=== PATIENT | male | born 1980 | race Caucasian/White ===

== ENCOUNTER 2024-06-01 18:09 | Emergency (ER) | payer MEDICAID, SELFPAY ==
[2024-06-01 18:10] VITALS: BMI 27.1
[2024-06-01 18:50] VITALS: BP 128/79; PULSE 89; RESP 20; TEMP 36.9; O2SAT 96
--- NOTE | 2024-06-01 19:05 | PD.EDRME ---
Rapid Medical Screening Exam RME Arrival date/time: 06/01/24 18:09 43 year old male present to ED for c/o of left leg infection, unknown time I have greeted and performed a focused initial assessment of this patient. A comprehensive ED assessment and evaluation of the patient, analysis of all test results, and completion of the medical decision making process will be conducted by additional ED providers. Chief Complaint: Altered Mental Status Time Seen by Provider: 06/01/24 18:16 Vital signs: Vital Signs Temperature 98.5 F 06/01/24 18:50 Pulse Rate 89 06/01/24 18:50 Respiratory Rate 20 06/01/24 18:50 Blood Pressure 128/79 06/01/24 18:50 Pulse Oximetry (%) 96 06/01/24 18:50 Oxygen Delivery Method Room Air 06/01/24 18:50
--- NOTE | 2024-06-01 19:06 | XR_ITS ---
Examination: Tibia-Fibula, left , 2 views Technique: Tibia-fibula AP lateral 2 views Date and time of exam: June 01, 2024 1912 hrs. Indications: Dog bite to the lower leg 3 days ago with pain and swelling Findings: Soft tissue defect lateral lower leg No fracture No opaque foreign body Impression: No opaque foreign body
[2024-06-01 20:17] LABS: Basophils % (Auto) 0 % (0-2.5); Eosinophils # (Auto) 0.1 Thou/mm3 (0.0-0.5); Eosinophils % (Auto) 1 % (0-10); Hematocrit 43.6 % (41.0-53.0); Immature Granulocytes % (Auto) 0 % (0-0); Immature Granulocytes Auto 0.02 Thou/mm3 (0.00-0.00); Lymphocytes # (Auto) 1.4 Thou/mm3 (1.0-4.8); Lymphocytes % (Auto) 16 % (10-50); Mean Corpuscular HGB Conc 34.4 g/dl (31.0-37.0); Mean Corpuscular Hemoglobin 29.9 pg (25.0-35.0); Mean Corpuscular Volume 87 fL (80-100); Monocytes # (Auto) 0.8 Thou/mm3 (0.0-0.8); Monocytes % (Auto) 10 % (0-12); Neutrophils # (Auto) 6.2 Thou/mm3 (1.8-7.7); Neutrophils % (Auto) 73 % (37-80); Nucleated Red Blood Cell % 0 /100 WBC (0); Platelet Count 348 Thou/mm3 (140-440); RDW Standard Deviation 37.6 fL (35.1-43.9); Red Blood Count 5.01 Miln/mm3 (4.50-5.90); White Blood Count 8.5 Thou/mm3 (3.8-10.6)
[2024-06-01 20:23] LABS: Prothrombin Time 10.6 Seconds (9.0-12.2)
[2024-06-01 20:33] LABS: Alanine Aminotransferase 37 U/L (10-49); Albumin, Serum 4.5 gm/dL (3.5-5.0); Alcohol, Blood Medical < 3.0 mg/dL (0-10.0); Alkaline Phosphatase 91 U/L (46-116); Anion Gap 4 (7-16); Aspartate Amino Transferase 24 U/L (0-34); BUN/Creatinine Ratio 12 Ratio (12-20); Bilirubin,Total 0.5 mg/dL (0.3-1.2); Blood Urea Nitrogen 14 mg/dL (9-23); Carbon Dioxide 31.7 mMol/L (20.0-31.0); Chloride 104 mMol/L (98-107); Creatinine (Component) 1.2 mg/dL (0.6-1.3); Estimated Creatinine Clearance 87.1 mL/min (>60); Globulin 2.3 gm/dL (2.3-3.5); Glucose 130 mg/dL (74-106); Osmolality,Calculated 281 (275-295); Potassium 4.8 mMol/L (3.4-5.1); Sodium 140 mMol/L (136-145); Total Protein 6.8 gm/dL (5.7-8.2); eGFR > 60 See Note
--- NOTE | 2024-06-01 20:47 | PC.NURSE ---
2045 PT CALLED BACK NO ANSWER AT THIS TIME.
--- NOTE | 2024-06-01 21:19 | PD.EDADULT ---
ED General RME/HPI General Chief complaint: Altered Mental Status Stated complaint: DOG BITE ON LEG, TODAY CONFUSED Time Seen by Provider: 06/01/24 18:16 Arrival date/time: 06/01/24 18:09 CC: Puncture wound with reported dog bite HPI patient presents to the ER, drowsy, easily arousable with slurred speech suspicious for substance abuse, stating that he was bitten by a dog a couple of days ago , however the patient states that he was seen at [facility] was put on medications which she does not have with him at the time. Patient states that he has been taking them with regularity. Patient is complaining of dog bite site on the left lower lateral leg that is mildly painful. RME / HPI RME / HPI narrative: 06/01/24 18:09 43 year old male present to ED for c/o of left leg infection, unknown time I have greeted and performed a focused initial assessment of this patient. A comprehensive ED assessment and evaluation of the patient, analysis of all test results, and completion of the medical decision making process will be conducted by additional ED providers. Related Data Previous Rx's ?Medication ?Instructions ?Recorded Hydrocodone/Acetaminophen * (NORCO 1 - 2 tab PO Q4H PRN PAIN #10 tabs 11/15/16 5/325 *) amoxicillin 875 mg-potassium 1 tab PO BID #14 tabs 06/01/24 clavulanate 125 mg tablet Allergies Allergy/AdvReac Type Severity Reaction Status Date / Time NKA* Allergy Uncoded 06/01/24 18:14 Review of Systems Review of Systems Narrative Review of Systems: GEN: No fever, no chills, no weight loss EYES: No discharge, no visual changes, no pain HEENT: No ear pain, no congestion, no sore throat PULM: No shortness of breath, no cough, no congestion CV: No chest pain, no dyspnea on exertion, no palpitations GI: No nausea, no vomiting, no diarrhea, no pain, no constipation : No frequency, no urgency, no dysuria MUSC/SKEL: No joint pain, no back pain SKIN: Positive puncture wound no rash PSYCH: No hallucinations, no depression HEME/LYMPH: No easy bleeding or bruising tendencies NEURO: No weakness, no headache Past Medical History Social History SMOKING STATUS: Current every day smoker ED Exam Narrative Physical exam: [General: Drowsy but easily arousable ill kempt, but not in any acute distress Head normocephalic HEENT: Within acceptable limits Neck is supple nontender Chest equal chest rise nontender to palpation Respiratory: Clear to auscultation no wheezes crackles or rubs CV: Rate rhythm is regular no murmurs rubs or clicks Abdomen is distended secondary to body habitus soft nontender no masses positive bowel sounds all 4 quadrants Back: No CVA tenderness no spinous process tenderness from cervical spine thoracic and lumbar spine Skin: Open wound site to the left lateral leg midshaft between the ankle and the knee. Surrounding erythema approximately 10 cm in diameter. No streaking streaking. No exudate. Considerable amount of eschar. Otherwise skin is intact no petechiae rash induration ulceration or crepitus Extremities: Moving all extremity against resistance cap refill less than 2 seconds neurosensory intact Neuro: Awake alert oriented x3 Glascow coma 15 no focal deficits] Course Quality Measures none Orders Category Date Time Status Dressing Care/Change NEEDED Care 06/01/24 21:18 Active XR tibia fibula LT 2V Stat Exams 06/01/24 19:06 Completed Alcohol, Blood Medical Stat Lab 06/01/24 19:42 Completed Blood Culture (Lab) Stat Lab 06/01/24 19:44 Received CBC Stat Lab 06/01/24 19:42 Completed CMP [Comprehensive Metabolic Panel] Stat Lab 06/01/24 19:42 Completed Drug Screen,Urine Stat Lab 06/01/24 19:06 Ordered INR [Prothrombin Time with INR] Stat Lab 06/01/24 19:42 Completed cefTRIAXone [Rocephin] 1,000 mg Med 06/01/24 21:14 Discontinued Lidocaine 1% 20 ml [Xylocaine 1% 20 ML] 2.1 ml IM X1 Vital Signs Vital signs: Vital Signs Temperature 98.5 F 06/01/24 18:50 Pulse Rate 89 06/01/24 18:50 Respiratory Rate 20 06/01/24 18:50 Blood Pressure 128/79 06/01/24 18:50 Pulse Oximetry (%) 96 06/01/24 18:50 Oxygen Delivery Method Room Air 06/01/24 18:50 Procedures -ED Procedure Comment Wound site approximately 2 x 2 cm center eschar was removed. [place] granulated tissue noted underlying. No bleeding oozing of exudate or serous fluid. Bulky dressing applied patient tolerated procedure well. [facility] Patient data External records reviewed:: [facility] previous records Clinical information provided by:: patient Social determinants that could affect healthcare access:: none Patient has the following chronic illnesses:: Substance abuse How is presenting disease/condition affected by chronic disease/condition?: uneffected by Evaluation data The following diagnostics were reviewed and interpreted by me:: lab results Lab and/or radiology exams considered but not ordered:: CBC shows no leukocytosis anemia thrombocytopenia CMP shows no acute electrolyte imbalances renal impairment transaminitis or T. bili elevation. Interpretation Summary: I am not sure this patient has been compliant with the medication we will reissue the Augmentin, site was cleaned out, bulky dressing applied. Patient is under the influence of something as a he is drowsy but easily arousable. Medications Medications considered but not ordered:: None Medication administrations:: Medication Administration History Discontinued Medications Ceftriaxone Sodium 1,000 mg/ (Lidocaine HCl 2.1 ml) 0 mg IM X1 ONE Stop: 06/01/24 21:15 None Consultations Consultation(s) initiated? (list below): No Diagnosis Differential Diagnosis ED Complaint MDM: Cellulitis dog bite abscess of the leg Most likely diagnosis given after review of the tests above:: Dog bite cellulitis Admission Indicated Admission indicated?: not indicated Explain why admission is indicated or not indicated:: Stable for outpatient follow-up Admission Request Was there a request for admission?: No Disposition Plan Disposition Plan: Discharge Discharge Attestation Discharge Attestation: The patient and all family members were given an opportunity to ask questions and understood the discharge instructions. Discharge instructions specifically effects, indications for sooner follow up or return to the emergency department, and the expected course of current diagnosis. Patient condition: Stable Medical Decision Making Differential Diagnosis Differential Diagnosis: Cellulitis dog bite abscess of the leg Lab Data 06/01/24 19:42 06/01/24 19:42 Labs: Lab Results 06/01/24 Range/Units 19:42 WBC 8.5 (3.8-10.6) Thou/mm3 RBC 5.01 (4.50-5.90) Miln/mm3 Hgb 15.0 (13.5-16.0) g/dL Hct 43.6 (41.0-53.0) % MCV 87 (80-100) fL MCH 29.9 (25.0-35.0) pg MCHC 34.4 (31.0-37.0) g/dl RDW Std Deviation 37.6 (35.1-43.9) fL Plt Count 348 (140-440) Thou/mm3 Neut % (Auto) 73 (37-80) % Lymph % (Auto) 16 (10-50) % Walker % (Auto) 10 (0-12) % Eos % (Auto) 1 (0-10) % Baso % (Auto) 0 (0-2.5) % Neut # (Auto) 6.2 (1.8-7.7) Thou/mm3 Lymph # (Auto) 1.4 (1.0-4.8) Thou/mm3 Walker # (Auto) 0.8 (0.0-0.8) Thou/mm3 Eos # (Auto) 0.1 (0.0-0.5) Thou/mm3 Baso # (Auto) 0.0 (0.0-0.2) Thou/mm3 Immature Gran # (Auto) 0.02 H (0.00-0.00) Thou/mm3 Absolute Nucleated RBC 0.00 (0.00-0.00) Thou/mm3 Immature Gran % 0 (0-0) % Nucleated RBC % 0 (0) /100 WBC PT 10.6 (9.0-12.2) Seconds INR 1.0 (0.9-1.3) Sodium 140 (136-145) mMol/L Potassium 4.8 (3.4-5.1) mMol/L Chloride 104 (98-107) mMol/L Carbon Dioxide 31.7 H (20.0-31.0) mMol/L Anion Gap 4 L (7-16) BUN 14 (9-23) mg/dL Creatinine 1.2 (0.6-1.3) mg/dL Estim Creat Clear Calc 87.1 (>60) mL/min eGFR > 60 (60 - ) See Note BUN/Creatinine Ratio 12 (12-20) Ratio Glucose 130 H (74-106) mg/dL Calculated Osmolality 281 (275-295) Calcium 10.0 (8.3-10.6) mg/dL Corrected Calcium 10.0 (8.5-10.1) mg/dL Total Bilirubin 0.5 (0.3-1.2) mg/dL AST 24 (0-34) U/L ALT 37 (10-49) U/L Alkaline Phosphatase 91 (46-116) U/L Total Protein 6.8 (5.7-8.2) gm/dL Albumin 4.5 (3.5-5.0) gm/dL Globulin 2.3 (2.3-3.5) gm/dL Albumin/Globulin Ratio 2.0 (1.2-2.2) Ethyl Alcohol < 3.0 (0-10.0) mg/dL Discharge Plan Plan Patient Disposition: HOME (Self Care) Patient condition on transfer: Stable Prescriptions/Referrals Prescriptions/Med Rec: New amoxicillin-pot clavulanate 875-125 mg tablet 1 tab PO BID Qty: 14 0RF No Action Hydrocodone/Acetaminophen * (NORCO 5/325 *) 1 TAB tablet 1 - 2 tab PO Q4H PRN (Reason: PAIN) Qty: 10 0RF Rx Instructions: FOR PAIN Referrals: Caroline Montesinos FNP [Primary Care Provider] - In 1 week Problem List Clinical Impression: Cellulitis of left leg, Dog bite Patient/Caregiver Discharge Instructions Education Materials: ED Animal Bite (General), ED Cellulitis Print Language: Belarusian Stand Alone Forms: Merary Award Info., Patient Portal Info Letter, Work/School Release PA/REGULATORY SUBMISSIONS ASSOCIATE Supervising Physician RITA/REGULATORY SUBMISSIONS ASSOCIATE Supervising Physician: Zhen Whalen ENP
[2024-06-01] MEDS: cefTRIAXone 1,000 MG, LIDOCAINE 1% 20 ML 2.1 ML IM (21:42)
== END 2024-06-01 22:01 | disposition home or self-care (01) ==
PROVIDERS: Physician Assistant; Emergency Provider Emergency Medicine; PCP Nurse Practitioner
DX: S81.832A Puncture wound without foreign body, left lower leg, initial encounter (principal); L03.116 Cellulitis of left lower limb; W54.0XXA Bitten by dog, initial encounter
CPT/HCPCS: 36415; 73590; 80053; 80307; 80320; 85025; 85610; 87040; 96372; 99283; J0696; J3490; G0480